=== PATIENT | male | born 1965 | race Caucasian/White ===

== ENCOUNTER 2019-08-21 10:54 | Emergency (ER) | payer SELFPAY ==
[2019-08-21] MEDS ORDERED: ONDANSETRON HCL INJ/PF 4 MG/2 ML SDV IV ONE (11:37)
--- NOTE | 2019-08-21 11:38 | ER Document Report ---
ED Medical Screen (RME) - General Chief Complaint: Abdominal Pain Stated Complaint: ABDOMINAL PAIN Time Seen by Provider: 08/21/19 11:32 Primary Care Provider: LOLA LIEBERMAN MD [Primary Care Provider] - Follow up as needed Mode of Arrival: Wheelchair Information source: Patient Notes: Patient is a 54-year-old male presenting to the emergency department chief complaint of upper abdominal pain that radiates straight through to his back. Patient reports the pain started several hours ago. He states he has had a similar pain approximately 1 to 2 years ago when he was diagnosed with a gallstone. Patient has not had any abdominal surgeries. Exam: Tenderness in the right upper quadrant and epigastric area. Patient appears to be in moderate distress. Patient's vital signs within normal limits. I have greeted and performed a rapid initial assessment of this patient. A comprehensive ED assessment and evaluation of the patient, analysis of test results and completion of the medical decision making process will be conducted by additional ED providers. I have specifically instructed the patient or family members with the patient to immediately return to any nursing staff should anything change in the patient's condition or with their chief complaint. - Related Data Allergies/Adverse Reactions: No Known Allergies Allergy (Unverified 11/25/13 10:37) Home Medications: Amlodipine, Stool Softener Past Medical History - Past Medical History Cardiac Medical History: Reports: Hx Hypertension - Immunizations Hx Diphtheria, Pertussis, Tetanus Vaccination: No Physical Exam - Vital signs Vitals: Temp Pulse Resp BP Pulse Ox 97.6 F 81 20 164/86 H 100 08/21/19 11:25 08/21/19 11:25 08/21/19 11:25 08/21/19 11:25 08/21/19 11:25 Course - Vital Signs Vital signs: Temp Pulse Resp BP Pulse Ox 97.6 F 81 20 164/86 H 100 08/21/19 11:25 08/21/19 11:25 08/21/19 11:25 08/21/19 11:25 08/21/19 11:25 Doctor's Discharge - Discharge Referrals: LOLA LIEBERMAN MD [Primary Care Provider] - Follow up as needed
[2019-08-21] MEDS: MORPHINE SULFATE 10 MG/ML INJ IV ONE ×2 (12:07→12:10)
[2019-08-21 12:11] LABS: ABSOLUTE BASOPHILS # (AUTO) 0.1 10^3/uL (0.0-0.2); ABSOLUTE LYMPHOCYTES (AUTO) 0.9 10^3/uL (0.5-4.7); ABSOLUTE MONOCYTES (AUTO) 0.5 10^3/uL (0.1-1.4); ABSOLUTE NEUT (AUTO) 9.9 10^3/uL (1.7-8.2); EOSINOPHILS % (AUTO) 0.2 % (0-6); HEMOGLOBIN 16.8 g/dL (13.5-17.0); LYMPHOCYTES % (AUTO) 7.8 % (13-45); MEAN CORPUSCULAR HEMOGLOBIN 30.7 pg (27.0-33.4); MEAN CORPUSCULAR VOLUME 88 fl (80-97); MONOCYTES % (AUTO) 4.8 % (3-13); PLATELET COUNT 404 10^3/uL (150-450); RED BLOOD COUNT 5.46 10^6/uL (4.35-5.55); RED CELL DISTRIBUTION WIDTH 13.3 % (11.5-14.0); SEGMENTED NEUTROPHILS % (AUTO) 86.2 % (42-78); TOTAL CELLS COUNTED % (AUTO) 100 %; WHITE BLOOD COUNT 11.4 10^3/uL (4.0-10.5)
[2019-08-21 12:37] LABS: ALBUMIN 4.9 g/dL (3.5-5.0); ALKALINE PHOSPHATASE 104 U/L (38-126); ANION GAP 13 (5-19); ASPARTATE AMINO TRANSFERASE 40 U/L (17-59); BILIRUBIN,DIRECT 0.1 mg/dL (0.0-0.4); BLOOD UREA NITROGEN 14 mg/dL (7-20); CALCIUM 10.1 mg/dL (8.4-10.2); CARBON DIOXIDE 23 mmol/L (22-30); CHLORIDE 102 mmol/L (98-107); GLUCOSE 176 mg/dL (75-110); POTASSIUM 3.8 mmol/L (3.6-5.0); TOTAL PROTEIN 8.2 g/dL (6.3-8.2)
[2019-08-21 13:11] LABS: APPEARANCE,URINE SLIGHTLY-CLOUDY; BILIRUBIN,URINE NEGATIVE (NEGATIVE); CALCIUM OXALATE CRYSTALS,URINE MODERATE /HPF; COLOR,URINE AMBER; GLUCOSE, URINE 50 mg/dL (NEGATIVE); KETONES,URINE 80 mg/dL (NEGATIVE); LEUKOCYTE ESTERASE,URINE NEGATIVE (NEGATIVE); NITRITE,URINE NEGATIVE (NEGATIVE); PROTEIN,URINE 30 mg/dL (NEGATIVE); URINE SPECIFIC GRAVITY 1.025
[2019-08-21] MEDS ORDERED: NORMAL SALINE 1000 ML 1,000 ML IV ONE (13:18)
--- NOTE | 2019-08-21 13:29 | RADIOLOGY REPORT (SQ) ---
EXAM DESCRIPTION: U/S ABDOMEN LIMITED W/O DOP COMPLETED DATE/TIME: 08/21/2019 1:15 pm REASON FOR STUDY: ruq/EPIGASTRIC PAIN COMPARISON: None. TECHNIQUE: Dynamic and static grayscale images acquired of the abdomen and recorded on PACS. Lewiso randy selected color Doppler and spectral images recorded. LIMITATIONS: None. FINDINGS: PANCREAS: Not seen. LIVER: Enlarged. Increased echogenicity. No masses. LIVER VASCULATURE: Normal directional flow of the main portal vein and hepatic veins. GALLBLADDER: Stones and sludge are present in the gallbladder. No cell wall thickening. There is no pericholecystic fluid. ULTRASOUND-DETECTED DE LEON'S SIGN: Negative. INTRAHEPATIC DUCTS AND COMMON DUCT: CBD and intrahepatic ducts normal caliber. No filling defects. INFERIOR VENA CAVA: Normal flow. AORTA: No aneurysm. RIGHT KIDNEY: Normal size, 11.1 cm. Normal echogenicity. No solid or suspicious masses. No hydroneph rosis. No calcifications. PERITONEAL AND RIGHT PLEURAL SPACE: No ascites or effusions. OTHER: No other significant findings. IMPRESSION: Cholelithiasis with sludge in the gallbladder. No evidence of cholecystitis. Hepatic s teatosis. TECHNICAL DOCUMENTATION: JOB ID: [id number] 2010 [employer]- All Rights Reserved Reading location - IP/workstation name: [email or web address]
[2019-08-21] MEDS ORDERED: MORPHINE SULFATE 10 MG/ML INJ IV ONE (13:51)
--- NOTE | 2019-08-21 13:54 | ER Document Report ---
ED General - General Chief Complaint: Abdominal Pain Stated Complaint: ABDOMINAL PAIN Time Seen by Provider: 08/21/19 11:32 Primary Care Provider: [facility] [Provider Group] - Follow up tomorrow (call for an appointment) LOLA LIEBERMAN MD [Primary Care Provider] - Follow up as needed Mode of Arrival: Wheelchair Information source: Patient Notes: 54-year-old male with history of high blood pressure presents to the emergency department today with complaints of upper abdominal pain. He reports pain radiates to his back. He reports for the past 2 days he has felt uncomfortable but this a.m. the pain increased. Complaints of epigastric pain that radiates bilaterally to his back. Denies vomiting fever or diarrhea. Reports he is been told he has had gallstones in the past. Patient reports he has been eating drinking voiding bowel movement as normal. Reports last bowel movement was today. Patient reports he has had some issues with constipation because he is currently not working because he has a fractured leg. He reports he had a hamburger last night. Woke up with the abdominal pain today. - HPI Onset: Other - 3 days Onset/Duration: Persistent Quality of pain: Cramping Associated symptoms: None Exacerbated by: Denies Relieved by: Denies Similar symptoms previously: No Recently seen / treated by doctor: No - Related Data Allergies/Adverse Reactions: No Known Allergies Allergy (Unverified 11/25/13 10:37) Home Medications: Amlodipine, Stool Softener Past Medical History - General Information source: Patient - Social History Smoking Status: Unknown if Ever Smoked Cigarette use (# per day): No Frequency of alcohol use: None Drug Abuse: None Family History: Reviewed & Not Pertinent Patient has suicidal ideation: No Patient has homicidal ideation: No - Past Medical History Cardiac Medical History: Reports: Hx Hypertension Past Surgical History: Reports: Hx Orthopedic Surgery, Hx Tonsillectomy - Immunizations Hx Diphtheria, Pertussis, Tetanus Vaccination: No Review of Systems - Review of Systems Notes: Review HPI for review of systems., All other systems negative Physical Exam - Vital signs Vitals: Temp Pulse Resp BP Pulse Ox 97.6 F 81 20 164/86 H 100 08/21/19 11:25 08/21/19 11:25 08/21/19 11:25 08/21/19 11:25 08/21/19 11:25 - General General appearance: Appears well, Alert In distress: None - HEENT Head: Normocephalic, Atraumatic Eyes: Normal Conjunctiva: Normal Pupils: PERRL Ears: Normal External canal: Normal Tympanic membrane: Normal Mucous membranes: Normal Pharynx: Normal Neck: Normal, Supple. No: Lymphadenopathy - Respiratory Respiratory status: No respiratory distress Chest status: Nontender Breath sounds: Normal Chest palpation: Normal - Cardiovascular Rhythm: Regular Heart sounds: Normal auscultation Murmur: No - Abdominal Inspection: Normal Distension: No distension Bowel sounds: Normal Tenderness: Tender - Epigastric area tender to palpate Organomegaly: No organomegaly Adult front & back diagram: 1 - Complains of some tenderness - Back Back: No: CVA tenderness - Extremities General upper extremity: Normal ROM General lower extremity: Normal ROM Notes: Right lower leg with orthopedic boot - Neurological Neuro grossly intact: Yes Cognition: Normal Orientation: AAOx4 L[place] Coma Scale Eye Opening: Spontaneous Mark Coma Scale Verbal: Oriented [place] Coma Scale Motor: Obeys Commands [place] Coma Scale Total: 15 Speech: Normal Cranial nerves: Normal - Psychological Associated symptoms: Normal affect, Normal mood - Skin Skin Temperature: Warm Skin Moisture: Dry Skin Color: Normal Course - Re-evaluation Re-evalutation: 08/21/19 14:12 Slight elevated white count at 11.4. Lipase is 67.3 urine shows a little bit of dehydration with ketones at 80. Gallbladder ultrasound shows some sludge. Patient reports he received morphine took away all the pain is little bit uncomfortable now but not unbearable. Patient reports he needs to call his niece for a ride home. He will be given a little bit morphine and finish 1 L of IV fluids discharge afterward. He was instructed on all results. Instructed on Bentyl antispasmodic. He was also instructed on the importance of follow-up with the surgeon tomorrow for evaluation scheduled to have his gallbladder taken out. He verbalized understanding to all instructions. Laboratory 08/21/19 08/21/19 08/21/19 12:01 12:01 12:37 WBC 11.4 H RBC 5.46 Hgb 16.8 Hct 48.0 MCV 88 MCH 30.7 MCHC 35.0 RDW 13.3 Plt Count 404 Lymph % (Auto) 7.8 L Duval % (Auto) 4.8 Eos % (Auto) 0.2 Baso % (Auto) 1.0 Absolute Neuts (auto) 9.9 H Absolute Lymphs (auto) 0.9 Absolute Monos (auto) 0.5 Absolute Eos (auto) 0.0 Absolute Basos (auto) 0.1 Seg Neutrophils % 86.2 H Sodium 137.9 Potassium 3.8 Chloride 102 Carbon Dioxide 23 Anion Gap 13 BUN 14 Creatinine 0.82 Est GFR ( Amer) > 60 Est GFR (MDRD) Non-Af > 60 Glucose 176 H Calcium 10.1 Total Bilirubin 1.0 Direct Bilirubin 0.1 Neonat Total Bilirubin Not Reportable Neonat Direct Bilirubin Not Reportable Neonat Indirect Bili Not Reportable AST 40 ALT 48 Alkaline Phosphatase 104 Total Protein 8.2 Albumin 4.9 Lipase 67.3 Urine Color LINDSEY Urine Appearance SLIGHTLY-CLOUDY Urine pH 5.0 Ur Specific Mallory 1.025 Urine Protein 30 H Urine Glucose (UA) 50 H Urine Ketones 80 H Urine Blood NEGATIVE Urine Nitrite NEGATIVE Urine Bilirubin NEGATIVE Urine Urobilinogen 2.0 H Ur Leukocyte Esterase NEGATIVE Urine WBC (Auto) 5 Urine RBC (Auto) 1 U Hyaline Cast (Auto) 8 Urine Bacteria (Auto) TRACE Squamous Epi Cells Auto <1 Calcium Oxalate Cr Auto MODERATE Urine Mucus (Auto) MANY Urine Ascorbic Acid NEGATIVE Abdomen Ultrasound 08/21/19 11:39 IMPRESSION: Cholelithiasis with sludge in the gallbladder. No evidence of cholecystitis. Hepatic steatosis. 08/21/19 14:13 - Vital Signs Vital signs: Temp Pulse Resp BP Pulse Ox 98.2 F 80 17 148/78 H 100 08/21/19 14:32 08/21/19 14:32 08/21/19 14:32 08/21/19 14:32 08/21/19 14:32 - Laboratory Result Diagrams: 08/21/19 12:01 08/21/19 12:01 Laboratory results interpreted by me: 08/21/19 08/21/19 08/21/19 12:01 12:01 12:37 WBC 11.4 H Lymph % (Auto) 7.8 L Absolute Neuts (auto) 9.9 H Seg Neutrophils % 86.2 H Glucose 176 H Urine Protein 30 H Urine Glucose (UA) 50 H Urine Ketones 80 H Urine Urobilinogen 2.0 H - Diagnostic Test Radiology reviewed: Image reviewed, Reports reviewed Discharge - Discharge Clinical Impression: Upper abdominal pain, Gallbladder sludge Condition: Stable Disposition: HOME, SELF-CARE Instructions: Abdominal Pain ([facility]), Antispasmodics ([facility]), Gallbladder Disease ([facility]), Low-Fat Diet ([facility]) Additional Instructions: *You have been evaluated for abdominal pain, gallbladder sludge *Take medication as prescribed *Eat a low-fat diet. Avoid fatty foods *Follow up with a surgeon this week for evaluation *Return to ED for worsening condition, changes, needs, concerns *Return to ED if not better in 24 hours Prescriptions: Dicyclomine HCl [Bentyl 20 mg Tablet] 20 mg PO QID #40 tablet Forms: Elevated Blood Pressure Referrals: LOLA LIEBERMAN MD [Primary Care Provider] - Follow up as needed [facility] [Provider Group] - Follow up tomorrow (call for an appointment)
[2019-08-21 14:33] VITALS: BP 148/78
== END 2019-08-21 14:51 | disposition home or self-care (01) ==
LOC: ER 10:54
DX: K82.0 Obstruction of gallbladder (principal); R10.9 Unspecified abdominal pain; R10.10 Upper abdominal pain, unspecified; M54.9 Dorsalgia, unspecified; R10.13 Epigastric pain; I10 Essential (primary) hypertension
CPT/HCPCS: 96376; 99284; 96361; 96374; 96375; 36415; 83690; 85025; 80053; 81001; 76705; J2270; J2405; J7030

== ENCOUNTER 2019-08-21 19:24 | Observation (INO) | payer SELFPAY ==
[2019-08-21] MEDS ORDERED: NORMAL SALINE 1000 ML 1,000 ML IV ONE ×2 (19:34→22:28)
[2019-08-21] MEDS ORDERED: ONDANSETRON 4 MG TAB.RAPDIS PO ONE (19:34)
[2019-08-21] MEDS ORDERED: KETOROLAC TROMETHAMINE INJ/PF 30 MG/1 ML SDV IM ONE (19:35)
--- NOTE | 2019-08-21 19:38 | ER Document Report ---
ED Medical Screen (RME) - General Chief Complaint: Abdominal Pain >50 Stated Complaint: ABDOMINAL PAIN Time Seen by Provider: 08/21/19 19:33 Primary Care Provider: LOLA LIEBERMAN MD [Primary Care Provider] - Follow up as needed Mode of Arrival: Wheelchair Information source: Patient Notes: 54-year-old male presented to ED for complaint of right upper quadrant abdominal pain. He was seen here earlier today. His ultrasound did show he had sludge in his gallbladder. He was discharged home after getting 2 injections of morphine. He states the morphine worked so good earlier. I have ordered him some Zofran and Toradol now I have repeated the labs. Have also ordered a CT abdomen pelvis. He will be seen by another provier. I have greeted and performed a rapid initial assessment of this patient. A comprehensive ED assessment and evaluation of the patient, analysis of test results and completion of medical decision making process will be conducted by an additional ED providers. - Related Data Allergies/Adverse Reactions: No Known Allergies Allergy (Unverified 11/25/13 10:37) Past Medical History - Past Medical History Cardiac Medical History: Reports: Hx Hypertension Past Surgical History: Reports: Hx Orthopedic Surgery, Hx Tonsillectomy - Immunizations Hx Diphtheria, Pertussis, Tetanus Vaccination: No Physical Exam - Vital signs Vitals: Temp Pulse Resp BP Pulse Ox 98.6 F 111 H 22 H 147/85 H 98 08/21/19 19:29 08/21/19 19:29 08/21/19 19:29 08/21/19 19:29 08/21/19 19:29 Course - Vital Signs Vital signs: Temp Pulse Resp BP Pulse Ox 98.6 F 111 H 22 H 147/85 H 98 08/21/19 19:29 08/21/19 19:29 08/21/19 19:29 08/21/19 19:29 08/21/19 19:29 Doctor's Discharge - Discharge Referrals: LOLA LIEBERMAN MD [Primary Care Provider] - Follow up as needed
[2019-08-21 19:56] LABS: ABSOLUTE BASOPHILS # (AUTO) 0.1 10^3/uL (0.0-0.2); ABSOLUTE LYMPHOCYTES (AUTO) 1.2 10^3/uL (0.5-4.7); BASOPHILS % (AUTO) 0.9 % (0-2); HEMATOCRIT 47.7 % (37.9-51.0); HEMOGLOBIN 16.5 g/dL (13.5-17.0); LYMPHOCYTES % (AUTO) 7.1 % (13-45); MEAN CORPUSCULAR HEMOGLOBIN 30.5 pg (27.0-33.4); MEAN CORPUSCULAR HGB CONC 34.7 g/dL (32.0-36.0); MEAN CORPUSCULAR VOLUME 88 fl (80-97); MONOCYTES % (AUTO) 6.1 % (3-13); PLATELET COUNT 421 10^3/uL (150-450); RED BLOOD COUNT 5.42 10^6/uL (4.35-5.55); RED CELL DISTRIBUTION WIDTH 13.6 % (11.5-14.0); SEGMENTED NEUTROPHILS % (AUTO) 85.9 % (42-78); TOTAL CELLS COUNTED % (AUTO) 100 %; WHITE BLOOD COUNT 16.3 10^3/uL (4.0-10.5)
[2019-08-21 20:18] LABS: ALBUMIN 4.7 g/dL (3.5-5.0); ALKALINE PHOSPHATASE 101 U/L (38-126); ANION GAP 13 (5-19); ASPARTATE AMINO TRANSFERASE 47 U/L (17-59); BILIRUBIN,DIRECT 0.2 mg/dL (0.0-0.4); BILIRUBIN,TOTAL 1.1 mg/dL (0.2-1.3); BLOOD UREA NITROGEN 13 mg/dL (7-20); CALCIUM 9.5 mg/dL (8.4-10.2); CARBON DIOXIDE 21 mmol/L (22-30); CHLORIDE 104 mmol/L (98-107); GLUCOSE 174 mg/dL (75-110); TOTAL PROTEIN 7.9 g/dL (6.3-8.2)
[2019-08-21] MEDS ORDERED: MORPHINE SULFATE 10 MG/ML INJ IV ONE (20:35)
--- NOTE | 2019-08-21 20:38 | ER Document Report ---
Doctor's Note Notes: 08/21/19 20:37 Nursing staff approached me asking if I could order additional pain medications for this patient. He was not triaged by me. I ordered 4 mg of morphine as his white blood count has increased from 11,000-16,000 in the last 6 hours.
--- NOTE | 2019-08-21 21:22 | RADIOLOGY REPORT (SQ) ---
EXAM DESCRIPTION: CT scan of the abdomen and pelvis with contrast. CLINICAL HISTORY: 54 years Male; Abdominal pain TECHNIQUE: CT of the abdomen and pelvis with intravenous contrast. Delayed imaging of the abdomen and pelvis was also performed. All CT scans at this facility use dose modulation, iterative reconstruction, and/or weight based dosing when appropriate to reduce radiation dose to as low as reasonably achievable. This exam was performed according to our department optimization program which includes automated exposure control, adjustment of the mA and/or kv according to patient size and/or use of iterative reconstruction technique. COMPARISON: None. FINDINGS: Lower chest:The lung bases are clear. The visualized portion of heart and great vessels are normal. Abdomen: Liver and biliary tree: Diffuse fatty infiltration of the liver is identified. In the left lower lobe anteriorly is a 10 mm low density area suggestive of a cyst. Gallbladder is distended and contains cholesterol stones as well as a hyperdense area dependently suggestive of sludge. No biliary dilatation. Pancreas: Normal Spleen:Within normal limits Kidneys: Kidneys are normal in size, shape and position. No stones. No mass or hydronephrosis. Simple appearing cyst is noted in the left kidney that measures 2 cm. Symmetric renal enhancement is seen. On delayed imaging there is symmetric excretion from the kidneys. The ureters are seen throughout their course and are unremarkable. Adrenal glands:Within normal limits Vascular structures:Within normal limits Retroperitoneum: No mass or lymphadenopathy Abdominal wall: Small umbilical hernia is seen containing omentum. The fascial defect is 10 mm. GI:Bowel is of normal caliber. No focal bowel wall thickening. No obstruction. Appendix: The appendix appears normal. General: No free air. No free fluid Pelvis: Lymph nodes: Small nonspecific lymph nodes are seen along the external iliac vessels bilaterally. These do not meet size criteria for pathologic process. Bladder: Unremarkable. Pelvis: No pelvic mass or adenopathy. Bones: Mild endplate spondylosis is seen in the lower thoracic spine. IMPRESSION: 1. Cholelithiasis. 2. Mild fatty infiltration of the liver. 3. No acute process in the abdomen or pelvis.
[2019-08-21 21:42] LABS: APPEARANCE,URINE CLEAR; BILIRUBIN,URINE NEGATIVE (NEGATIVE); COLOR,URINE YELLOW; GLUCOSE, URINE 150 mg/dL (NEGATIVE); KETONES,URINE 20 mg/dL (NEGATIVE); PROTEIN,URINE NEGATIVE (NEGATIVE); UROBILINOGEN,URINE NEGATIVE mg/dL (<2.0)
--- NOTE | 2019-08-21 22:15 | ER Document Report ---
ED General - General Chief Complaint: Abdominal Pain >50 Stated Complaint: ABDOMINAL PAIN Time Seen by Provider: 08/21/19 19:33 Primary Care Provider: LOLA LIEBERMAN MD [Primary Care Provider] - Follow up as needed Mode of Arrival: Wheelchair - [facility] Notes: Patient is a 54-year-old male with a history of hypertension who presents complaining of right upper quadrant and epigastric abdominal pain for the past couple days. On occasion he will feel nauseated. He was here earlier this afternoon and was found to have gallbladder sludge and cholelithiasis without evidence of cholecystitis. He had an 11.1 white count at that time. He was given medications and was feeling better and was subsequently discharged. He then came back due to return of the pain. Pain does not radiate. He is urinating normally and having normal bowel movements. Denies drug allergies. Denies any headache, fever, neck pain, URI, sore throat, chest pain, palpitations, syncope, cough, shortness of breath, wheeze, dyspnea, vomiting/diarrhea, urinary retention, dysuria, hematuria, back pain, or rash. - Related Data Allergies/Adverse Reactions: No Known Allergies Allergy (Unverified 11/25/13 10:37) Past Medical History - General Information source: Patient - Social History Smoking Status: Never Smoker Family History: Reviewed & Not Pertinent Patient has suicidal ideation: No Patient has homicidal ideation: No - Past Medical History Cardiac Medical History: Reports: Hx Hypertension Past Surgical History: Reports: Hx Orthopedic Surgery, Hx Tonsillectomy - Immunizations Hx Diphtheria, Pertussis, Tetanus Vaccination: No Review of Systems - Review of Systems -: Yes All other systems reviewed and negative Physical Exam - Vital signs Vitals: Temp Pulse Resp BP Pulse Ox 98.6 F 111 H 22 H 147/85 H 98 08/21/19 19:29 08/21/19 19:29 08/21/19 19:29 08/21/19 19:29 08/21/19 19:29 - Notes Notes: PHYSICAL EXAMINATION: GENERAL: Well-appearing, well-nourished and in no acute distress. HEAD: Atraumatic, normocephalic. EYES: Pupils equal round and reactive to light, extraocular movements intact, sclera anicteric, conjunctiva are normal. ENT: Nares patent and without discharge. oropharynx clear without exudates. No tonsilar hypertrophy or erythema. Moist mucous membranes. NECK: Normal range of motion, supple without lymphadenopathy LUNGS: Breath sounds clear to auscultation bilaterally and equal. No wheezes rales or rhonchi. HEART: Regular rate and rhythm without murmurs, rubs, gallops. ABDOMEN: Soft, nondistended abdomen. No guarding, no rebound. Normal bowel sounds present. No CVA tenderness bilaterally. + tenderness to the RUQ/epigastrum Musculoskeletal: FROM to passive/active. Strength 5+/5. Extremities: No cyanosis, clubbing, or edema b/l. Peripheral pulses 2+. Capillary refill less than 3 seconds. NEUROLOGICAL: Cranial nerves grossly intact. Normal speech, normal gait. PSYCH: Normal mood, normal affect. SKIN: Warm, Dry, normal turgor, no rashes or lesions noted. Course - Re-evaluation Re-evalutation: 08/21/19 22:15 [address] speak with [address] Ochoa, surgeon, who will come evaluate the patient. 08/21/19 22:25 Patient is an afebrile, well-hydrated, 54-year-old male who presents with cholelithiasis and leukocytosis of 16,000. His white blood cell count did increase since his visit this afternoon. Vitals are currently acceptable. PE is otherwise unremarkable. Patient is nontoxic-appearing. Labs are otherwise acceptable. The surgeon has accepted patient for admission for cholecystectomy in the morning. Patient in agreement with this plan. - Vital Signs Vital signs: Temp Pulse Resp BP Pulse Ox 98.6 F 111 H 22 H 147/85 H 98 08/21/19 19:29 08/21/19 19:29 08/21/19 19:29 08/21/19 19:29 08/21/19 19:29 - Laboratory Result Diagrams: 08/21/19 19:44 08/21/19 19:44 Laboratory results interpreted by me: 08/21/19 08/21/19 08/21/19 19:44 19:44 21:07 WBC 16.3 H Lymph % (Auto) 7.1 L Absolute Neuts (auto) 14.0 H Seg Neutrophils % 85.9 H Carbon Dioxide 21 L Glucose 174 H Urine Glucose (UA) 150 H Urine Ketones 20 H Urine Blood SMALL H Discharge - Discharge Clinical Impression: RUQ pain Cholelithiasis Qualifiers: Cholelithiasis location: gallbladder Cholecystitis presence: without cholecystitis Biliary obstruction: without biliary obstruction Qualified Code(s): K80.20 - Calculus of gallbladder without cholecystitis without obstruction Condition: Stable Disposition: ADMITTED INPATIENT Admitting Provider: Surgicalist - Dr. Ochoa Unit Admitted: Surgical Floor Referrals: LOLA LIEBERMAN MD [Primary Care Provider] - Follow up as needed
[2019-08-21] MEDS ORDERED: HYDROMORPHONE HCL INJ/PF 2 MG/ML AMPULE IV ONE (22:28)
[2019-08-21] MEDS ORDERED: DEXTROSE 5%-LACTATED RINGERS 1,000 ML IV PRN (22:43)
--- NOTE | 2019-08-21 22:43 | PDOC H&P ---
History of Present Illness Admission Date/PCP: LOLA LIEBERMAN MD Patient complains of: Right upper quadrant pains with nausea History of Present Illness: CANDE WINN is a 54 year old male hypertensive having off and on mild right upper quadrant pains past few days. Last night he ate cheeseburger and woke up this morning at 6 AM with excruciating abdominal pains with nausea. He went to ED this morning and ultrasound showed gallstones with sludge but no evidence of cholecystitis with a white count around 11,000. He was sent home after being given pain medications but the pains got worse this afternoon and went back to ED. CT scan done in ED showed cholelithiasis no evidence of cholecystitis but his white count went up to 16,000. Denies any fever no chills Past Medical History Cardiac Medical History: Reports: Hypertension Past Surgical History Past Surgical History: Reports: Orthopedic Surgery, Tonsillectomy Social History Smoking Status: Never Smoker Family History Family History: Reviewed & Not Pertinent Parental Family History Reviewed: Yes - Mother has diabetes Children Family History Reviewed: No Sibling(s) Family History Reviewed.: No Medication/Allergy Home Medications: Cephalexin Monohydrate [Keflex 500 mg Capsule] 500 mg PO BID #20 capsule 11/25 Dicyclomine HCl [Bentyl 20 mg Tablet] 20 mg PO QID #40 tablet 08/21/19 Allergies/Adverse Reactions: No Known Allergies Allergy (Unverified 11/25/13 10:37) Review of Systems Constitutional: PRESENT: as per HPI Gastrointestinal: PRESENT: abdominal pain, nausea Physical Exam Vital Signs: Temp Pulse Resp BP Pulse Ox 98.6 F 111 H 22 H 147/85 H 98 08/21/19 19:29 08/21/19 19:29 08/21/19 19:29 08/21/19 19:29 08/21/19 19:29 Intake & Output 08/20/19 08/21/19 08/22/19 06:59 06:59 06:59 Intake Total 1000 Balance 1000 Weight 121.1 kg General appearance: PRESENT: severe distress Eye exam: PRESENT: conjunctiva pink Mouth exam: PRESENT: moist Neck exam: PRESENT: full ROM Cardiovascular exam: PRESENT: tachycardia Pulses: PRESENT: normal radial pulses Vascular exam: PRESENT: normal capillary refill GI/Abdominal exam: PRESENT: soft, tenderness - Right upper quadrant and epigastric areas Neurological exam: PRESENT: alert, oriented to person, oriented to place, neha ented to time, oriented to situation Psychiatric exam: PRESENT: appropriate affect Skin exam: PRESENT: normal color, warm Results Laboratory Results: 08/21/19 19:44 08/21/19 19:44 08/21/19 08/21/19 08/21/19 19:44 19:44 21:07 WBC 16.3 H RBC 5.42 Hgb 16.5 Hct 47.7 MCV 88 MCH 30.5 MCHC 34.7 RDW 13.6 Plt Count 421 Seg Neutrophils % 85.9 H Sodium 138.3 Potassium 4.0 Chloride 104 Carbon Dioxide 21 L Anion Gap 13 BUN 13 Creatinine 0.65 Est GFR ( Amer) > 60 Glucose 174 H Calcium 9.5 Total Bilirubin 1.1 AST 47 Alkaline Phosphatase 101 Total Protein 7.9 Albumin 4.7 Lipase 55.7 Urine Color YELLOW Urine Appearance CLEAR Urine pH 5.0 Ur Specific [place] 1.030 Urine Protein NEGATIVE Urine Glucose (UA) 150 H Urine Ketones 20 H Urine Blood SMALL H Urine RBC (Auto) 3 Impressions: Abdomen/Pelvis CT 08/21/19 19:35 IMPRESSION: 1. Cholelithiasis. 2. Mild fatty infiltration of the liver. 3. No acute process in the abdomen or pelvis. Assessment & Plan - Diagnosis (1) Acute cholecystitis Is this a current diagnosis for this admission?: Yes (2) Hypertension Is this a current diagnosis for this admission?: Yes (3) Cholelithiasis Qualifiers: Cholelithiasis location: gallbladder Cholecystitis presence: without cholecystitis Biliary obstruction: without biliary obstruction Qualified Code(s): K80.20 - Calculus of gallbladder without cholecystitis without obstruction Is this a current diagnosis for this admission?: Yes - Time Time Spent: 30 to 50 Minutes - Inpatient Certification Medical Necessity: Need For IV Fluids, Need for Pain Control, Need for IV Antibiotics, Need for Surgery - Plan Summary Plan Summary: 54-year-old male with mild abdominal pains past few days but after eating a cheeseburger last night woke up this morning at 6:30 AM with excruciating pain associated with nausea. Went to ED where an ultrasound showed gallstones with sludge but no evidence of cholecystitis. His white count was around 11,000. He was sent home on pain medications but p.o. pain meds did not help increasing abdominal pains this afternoon and went back to ED. CT scan of the abdomen was done which showed gallstones but no evidence of cholecystitis. However his white count is elevated to about 16,000 with a blood sugar 175. The denies any fever or chills. His abdomen is tender in the epigastric and right upper quadrant areas otherwise it soft. Impression is acute cholecystitis, cholelithiasis Hypertension Plans: Hydrate IV antibiotics For laparoscopic cholecystectomy tomorrow with Dr. Iverson
[2019-08-21] MEDS ORDERED: HYDROMORPHONE HCL INJ/PF 2 MG/ML AMPULE IV PRN (22:47)
[2019-08-21] MEDS ORDERED: ONDANSETRON HCL INJ/PF 4 MG/2 ML SDV IV PRN (22:51)
[2019-08-21] MEDS ORDERED: KETOROLAC TROMETHAMINE INJ/PF 30 MG/1 ML SDV IV SCH (23:00)
[2019-08-22] MEDS ORDERED: PIPERACILLIN/TAZOBACTAM 3.375 GM VIAL IV PRN
[2019-08-22] MEDS: HYDROMORPHONE HCL INJ/PF 2 MG/ML AMPULE IV PRN ×2 (01:23→05:48)
[2019-08-22] MEDS: PIPERACILLIN SODIUM/TAZOBACTAM 3.375 GM in NORMAL SALINE 100 ML IV SCH ×4 (01:29→17:36)
[2019-08-22] MEDS: KETOROLAC TROMETHAMINE INJ/PF 30 MG/1 ML SDV IV PRN ×2 (03:20→09:20)
[2019-08-22 05:34] LABS: HEMATOCRIT 43.9 % (37.9-51.0); HEMOGLOBIN 15.3 g/dL (13.5-17.0); MEAN CORPUSCULAR HEMOGLOBIN 30.8 pg (27.0-33.4); MEAN CORPUSCULAR HGB CONC 34.8 g/dL (32.0-36.0); MEAN CORPUSCULAR VOLUME 88 fl (80-97); PLATELET COUNT 319 10^3/uL (150-450); RED BLOOD COUNT 4.97 10^6/uL (4.35-5.55); RED CELL DISTRIBUTION WIDTH 13.7 % (11.5-14.0); WHITE BLOOD COUNT 11.8 10^3/uL (4.0-10.5)
[2019-08-22] MEDS ORDERED: PIPERACILLIN/TAZOBACTAM 3.375 GM VIAL IV ONE (05:40)
[2019-08-22] MEDS ORDERED: METOPROLOL TARTRATE PF/INJ 5 MG/5 ML SDV IV ONE (05:45)
[2019-08-22 06:10] LABS: ABSOLUTE LYMPHOCYTES# (MANUAL) 0.7 10^3/uL (0.5-4.7); ABSOLUTE MONOCYTES # (MANUAL) 0.6 10^3/uL (0.1-1.4); BAND NEUTROPHILS % (MANUAL) 1 % (3-5); BASOPHILS % (MANUAL) 0 % (0-2); EOSINOPHILS % (MANUAL) 0 % (0-6); LYMPHOCYTES % (MANUAL) 6 % (13-45); MONOCYTES % (MANUAL) 5 % (3-13); SEGMENTED NEUTROPHILS % (MAN) 88 % (42-78); TOTAL CELLS COUNTED 100
[2019-08-22 06:11] LABS: PLATELET COMMENT ADEQUATE
--- NOTE | 2019-08-22 06:35 | PDOC CONSULTATION ---
Consultation Consult Date: 08/22/19 Attending physician:: NADYA ANTHONY Provider Consulted: DUSTY ESPAÑA Consult reason:: Hypertension History of Present Illness Admission Date/PCP: 08/21/19 22:44 LOLA LIEBERMAN MD Patient complains of: Episodes of biliary colic History of Present Illness: CANDE WINN is a 54 year old male who was admitted for acute biliary colic and laparoscopic surgical treatment was planned by Dr. Nadya Anthony today. Patient was noted to have elevated blood pressure on several readings over the evening and Dr. Anthony consulted the hospitalist service for management. Patient admits his first episode of biliary colic was about a year and a half ago and he had another episode on the day of admission when he woke up with severe colicky right upper quadrant abdominal pain radiating to the right midclavicular region accompanied by nausea, after eating a cheeseburger in the previous evening. The pain episodes last for several hours each time that they occur with gradual dissipation. Pain seems to be associated with eating greasy or fatty foods. He denies other associated or accompanying signs and symptoms. He has not identified any additional aggravating or ameliorating factors for his abdominal pain. Past Medical History Cardiac Medical History: Reports: Hypertension Denies: Atrial Fibrillation, Coronary Artery Disease, DVT, Hyperlipidema, Pulmonary Embolism Pulmonary Medical History: Denies: Asthma, Chronic Obstructive Pulmonary Disease (COPD) EENT Medical History: Denies: Cataracts, Ears - Hearing aids Neurological Medical History: Denies: Hemorrhagic CVA, Ischemic CVA, Seizures Endocrine Medical History: Reports: Obesity Denies: Diabetes Mellitus Type 1, Diabetes Mellitus Type 2, Hyperthyroidism, Hypothyroidism Renal/ Medical History: Denies: Chronic Kidney Disease, Nephrolithiasis Malignancy Medical History: Reports: None GI Medical History: Reports: Other - "Gallstones" Denies: Cirrhosis, Crohn's Disease, Gastroesophageal Reflux Disease, Hepatitis, Peptic Ulcer Disease, Ulcerative Colitis Musculoskeltal Medical History: Reports: Other - Vitamin D deficiency Denies: Arthritis, Gout Skin Medical History: Denies: Eczema, Psoriasis Psychiatric Medical History: Denies: Alcohol Dependency, Substance Abuse, Tobacco Dependency Traumatic Medical History: Reports: None Hematology: Denies: Anemia, Bleeding Tendencies Infectious Medical History: Reports: None Past Surgical History Past Surgical History: Reports: Orthopedic Surgery - Right lower extremity, Tonsillectomy Social History Information Source: Patient Lives with: Alone Smoking Status: Never Smoker Electronic Cigarette use?: No Frequency of Alcohol Use: None Hx Recreational Drug Use: No Drugs: None Hx Prescription Drug Abuse: No - Advance Directive Resuscitation Status: Full Code Surrogate healthcare decision maker:: Amy Mauricio Family History Family History: DM, Hypertension, Malignancy. denies: CAD Parental Family History Reviewed: Yes Children Family History Reviewed: No Sibling(s) Family History Reviewed.: Yes Medication/Allergy Home Medications: Cephalexin Monohydrate [Keflex 500 mg Capsule] 500 mg PO BID #20 capsule 11/25/13 Dicyclomine HCl [Bentyl 20 mg Tablet] 20 mg PO QID #40 tablet 08/21/19 Allergies/Adverse Reactions: No Known Allergies Allergy (Unverified 11/25/13 10:37) Review of Systems Constitutional: ABSENT: chills, fever(s) Eyes: ABSENT: visual disturbances, other - Eye pain Ears: ABSENT: hearing changes, other - Ear pain Nose, Mouth, and Throat: ABSENT: headache(s), sore throat Cardiovascular: ABSENT: chest pain, palpitations Respiratory: ABSENT: cough, dyspnea Gastrointestinal: PRESENT: as per HPI, abdominal pain, nausea. ABSENT: constipation, diarrhea, vomiting Genitourinary: ABSENT: dysuria, hematuria Musculoskeletal: ABSENT: back pain, joint swelling, muscle weakness Integumentary: ABSENT: pruritus, rash Neurological: ABSENT: confusion, convulsions, focal weakness, memory loss, syncope Psychiatric: ABSENT: anxiety, depression Endocrine: ABSENT: cold intolerance, heat intolerance, polydipsia, polyphagia, polyuria Hematologic/Lymphatic: ABSENT: easy bleeding, easy bruising Allergic/Immunologic: ABSENT: seasonal rhinorrhea Physical Exam Vital Signs: Temp Pulse Resp BP Pulse Ox 97.8 F 87 18 172/85 H 96 08/22/19 04:29 08/22/19 04:29 08/22/19 04:29 08/22/19 04:29 08/22/19 04:29 Intake & Output 08/20/19 08/21/19 08/22/19 23:59 23:59 23:59 Intake Total 1999 100 Output Total 625 Balance 1999 - Weight 121.1 kg 120.8 kg General appearance: PRESENT: no acute distress, cooperative Head exam: PRESENT: atraumatic, normocephalic Eye exam: PRESENT: conjunctiva pink. ABSENT: scleral icterus Ear exam: PRESENT: normal external ear exam. ABSENT: bleeding, drainage Mouth exam: PRESENT: dry mucosa, neck supple Neck exam: ABSENT: thyromegaly, tracheal deviation Respiratory exam: PRESENT: clear to auscultation amberly, symmetrical, unlabored Cardiovascular exam: PRESENT: RRR. ABSENT: clicks, gallop, rubs Pulses: PRESENT: normal radial pulses, normal dorsalis pedis pul Vascular exam: PRESENT: normal capillary refill. ABSENT: pallor GI/Abdominal exam: PRESENT: Hernandez's sign, normal bowel sounds, soft, tenderness - Moderate right upper quadrant tenderness on palpation Rectal exam: PRESENT: deferred Extremities exam: ABSENT: joint swelling, pedal edema Musculoskeletal exam: PRESENT: other - Wearing a postoperative boot on the right lower extremity. ABSENT: deformity, dislocation Neurological exam: PRESENT: alert, oriented to person, oriented to place, oriented to time, oriented to situation, CN II-XII grossly intact. ABSENT: motor sensory deficit Psychiatric exam: PRESENT: appropriate affect, normal mood Skin exam: PRESENT: dry, intact, warm. ABSENT: jaundice, rash, urticaria Results Laboratory Results: 08/22/19 04:14 08/21/19 19:44 08/21/19 08/21/19 08/21/19 19:44 19:44 21:07 WBC 16.3 H RBC 5.42 Hgb 16.5 Hct 47.7 MCV 88 MCH 30.5 MCHC 34.7 RDW 13.6 Plt Count 421 Seg Neutrophils % 85.9 H Sodium 138.3 Potassium 4.0 Chloride 104 Carbon Dioxide 21 L Anion Gap 13 BUN 13 Creatinine 0.65 Est GFR ( Amer) > 60 Glucose 174 H Calcium 9.5 Total Bilirubin 1.1 AST 47 Alkaline Phosphatase 101 Total Protein 7.9 Albumin 4.7 Lipase 55.7 Urine Color YELLOW Urine Appearance CLEAR Urine pH 5.0 Ur Specific [place] 1.030 Urine Protein NEGATIVE Urine Glucose (UA) 150 H Urine Ketones 20 H Urine Blood SMALL H Urine RBC (Auto) 3 08/22/19 04:14 WBC 11.8 H RBC 4.97 Hgb 15.3 Hct 43.9 MCV 88 MCH 30.8 MCHC 34.8 RDW 13.7 Plt Count 319 Seg Neutrophils % Not Reportable Sodium Potassium Chloride Carbon Dioxide Anion Gap BUN Creatinine Est GFR ( Amer) Glucose Calcium Total Bilirubin AST Alkaline Phosphatase Total Protein Albumin Lipase Urine Color Urine Appearance Urine pH Ur Specific [place] Urine Protein Urine Glucose (UA) Urine Ketones Urine Blood Urine RBC (Auto) Impressions: Abdomen/Pelvis CT 08/21/19 19:35 IMPRESSION: 1. Cholelithiasis. 2. Mild fatty infiltration of the liver. 3. No acute process in the abdomen or pelvis. Assessment and Plan - Diagnosis (1) Hypertension Qualifiers: Hypertension type: essential hypertension Qualified Code(s): I10 - Essential (primary) hypertension Is this a current diagnosis for this admission?: Yes (2) RUQ pain Is this a current diagnosis for this admission?: Yes (3) Cholelithiasis Qualifiers: Cholelithiasis location: gallbladder Cholecystitis presence: without cholecystitis Biliary obstruction: without biliary obstruction Qualified Code(s): K80.20 - Calculus of gallbladder without cholecystitis without obstruction Is this a current diagnosis for this admission?: Yes (4) Acute cholecystitis Is this a current diagnosis for this admission?: Yes - Plan Summary Summary: Patient will be treated initially with metoprolol 5 mg IV every 4 hours as needed to maintain a systolic blood pressure less than 160 and a diastolic blood pressure less than 100. Once patient is able to take oral antihypertensives again he should be placed back on his usual Norvasc at his normal dosage. As long as his blood pressure is stabilized there should be no reason that he cannot have surgery this morning. - Time Time Spent with patient: 25-34 minutes Medications reviewed and adjusted accordingly: Yes Anticipated discharge: Home - Inpatient Certification Based on my medical assessment, after consideration of the patient's comorbidities, presenting symptoms, or acuity I expect that the services needed warrant INPATIENT care.: Yes I certify that my determination is in accordance with my understanding of Medicare's requirements for reasonable and necessary INPATIENT services [42 CFR 412.3e].: Yes Medical Necessity: Need For IV Fluids, Need for Pain Control, Need for Surgery
[2019-08-22] MEDS ORDERED: METOPROLOL TARTRATE PF/INJ 5 MG/5 ML SDV IV PRN (06:49)
--- NOTE | 2019-08-22 07:52 | PDOC PROGRESS REPORT ---
Subjective Progress Note for:: 08/22/19 Subjective:: 54-year-old male admitted with right upper quadrant pain and gallstones. He complains of right upper quadrant pain today. He denies fevers, chills, nausea, vomiting, melena, hematochezia, hematemesis, dizziness, orthostasis. Reason For Visit: ACUTE CHOLECYSTITIS,CHOLELITHIASIS Physical Exam Vital Signs: Temp Pulse Resp BP Pulse Ox 97.8 F 87 18 172/85 H 96 08/22/19 04:29 08/22/19 04:29 08/22/19 04:29 08/22/19 04:29 08/22/19 04:29 Intake & Output 08/21/19 08/22/19 08/23/19 06:59 06:59 06:59 Intake Total 2100 Output Total 625 Balance 1475 Weight 120.8 kg General appearance: PRESENT: no acute distress, cooperative Head exam: PRESENT: atraumatic, normocephalic Eye exam: PRESENT: EOMI, PERRLA. ABSENT: scleral icterus Mouth exam: PRESENT: moist, neck supple Neck exam: ABSENT: meningismus, tenderness, thyromegaly, tracheal deviation Respiratory exam: PRESENT: unlabored. ABSENT: chest wall tenderness, wheezes Cardiovascular exam: ABSENT: tachycardia Pulses: PRESENT: normal radial pulses GI/Abdominal exam: PRESENT: soft. ABSENT: distended, tenderness Rectal exam: PRESENT: deferred Extremities exam: ABSENT: clubbing Neurological exam: PRESENT: alert, awake Psychiatric exam: ABSENT: agitated, anxious Focused psych exam: ABSENT: delusional Skin exam: ABSENT: cyanosis, erythema, jaundice Results Laboratory Results: 08/22/19 04:14 08/21/19 19:44 08/21/19 08/21/19 08/21/19 19:44 19:44 21:07 WBC 16.3 H RBC 5.42 Hgb 16.5 Hct 47.7 MCV 88 MCH 30.5 MCHC 34.7 RDW 13.6 Plt Count 421 Seg Neutrophils % 85.9 H Sodium 138.3 Potassium 4.0 Chloride 104 Carbon Dioxide 21 L Anion Gap 13 BUN 13 Creatinine 0.65 Est GFR ( Amer) > 60 Glucose 174 H Calcium 9.5 Total Bilirubin 1.1 AST 47 Alkaline Phosphatase 101 Total Protein 7.9 Albumin 4.7 Lipase 55.7 Urine Color YELLOW Urine Appearance CLEAR Urine pH 5.0 Ur Specific [place] 1.030 Urine Protein NEGATIVE Urine Glucose (UA) 150 H Urine Ketones 20 H Urine Blood SMALL H Urine RBC (Auto) 3 08/22/19 04:14 WBC 11.8 H RBC 4.97 Hgb 15.3 Hct 43.9 MCV 88 MCH 30.8 MCHC 34.8 RDW 13.7 Plt Count 319 Seg Neutrophils % Not Reportable Sodium Potassium Chloride Carbon Dioxide Anion Gap BUN Creatinine Est GFR ( Amer) Glucose Calcium Total Bilirubin AST Alkaline Phosphatase Total Protein Albumin Lipase Urine Color Urine Appearance Urine pH Ur Specific [place] Urine Protein Urine Glucose (UA) Urine Ketones Urine Blood Urine RBC (Auto) Impressions: Abdomen/Pelvis CT 08/21/19 19:35 IMPRESSION: 1. Cholelithiasis. 2. Mild fatty infiltration of the liver. 3. No acute process in the abdomen or pelvis. Assessment & Plan - Diagnosis (1) Acute cholecystitis Is this a current diagnosis for this admission?: Yes - Plan Summary Plan Summary: This is a 54-year-old male with acute cholecystitis. He still complains of right upper quadrant pain. Continue with IV antibiotics. Plan for surgical intervention today. Risks/benefits discussed, informed consent obtained, and all questions answered.
[2019-08-22] MEDS ORDERED: SUCCINYLCHOLINE CHLORIDE INJ 200 MG/10 ML VIAL ONE (09:35)
[2019-08-22] MEDS ORDERED: PHENYLEPHRINE HCL INJ/PF 10 MG/1 ML SDV ONE (09:35)
[2019-08-22] MEDS ORDERED: GLYCOPYRROLATE 1 MG/5 ML VIAL ONE (09:35)
[2019-08-22] MEDS ORDERED: DEXAMETHASONE SOD PHOSPHATE INJ 4 MG/1 ML VIAL ONE (09:35)
[2019-08-22] MEDS ORDERED: LIDOCAINE 2% INJ-PF (20 MG/ML) 2 ML AMPUL ONE (09:35)
[2019-08-22] MEDS ORDERED: NEOSTIGMINE METHYLSULFATE 10 MG/10 ML VIAL ONE (09:35)
[2019-08-22] MEDS ORDERED: ONDANSETRON HCL INJ/PF 4 MG/2 ML SDV ONE (09:35)
[2019-08-22] MEDS ORDERED: ROCURONIUM BROMIDE INJ 50 MG/5 ML VIAL IV ONE (09:35)
[2019-08-22] MEDS ORDERED: BUPIVACAINE HCL 0.25 % INJ/PF (2.5 MG/1 ML) 30 ML VIAL ONE (10:08)
[2019-08-22] MEDS ORDERED: FENTANYL CITRATE INJ/PF 100 MCG/2 ML AMPUL ONE ×2 (10:30→13:54)
[2019-08-22] MEDS ORDERED: PROPOFOL INJ 200 MG/20 ML VIAL IV ONE (10:31)
[2019-08-22] MEDS ORDERED: MIDAZOLAM 2 MG/2 ML INJ ONE (10:31)
--- NOTE | 2019-08-22 10:52 | PDOC PROGRESS REPORT ---
Subjective Progress Note for:: 08/22/19 Subjective:: Patient is resting comfortably. Currently being transferred down to the OR for his surgery. Blood pressures have not been ideally controlled as he is just on intravenous medications at this time. Reason For Visit: ACUTE CHOLECYSTITIS,CHOLELITHIASIS Physical Exam Vital Signs: Temp Pulse Resp BP Pulse Ox 98.1 F 89 20 163/84 H 95 08/22/19 07:43 08/22/19 07:43 08/22/19 07:43 08/22/19 07:43 08/22/19 07:43 Intake & Output 08/21/19 08/22/19 08/23/19 06:59 06:59 06:59 Intake Total 2100 100 Output Total 625 Balance 1475 100 Weight 120.8 kg General appearance: PRESENT: no acute distress, cooperative, well-developed Head exam: PRESENT: atraumatic, normocephalic Eye exam: PRESENT: conjunctiva pink. ABSENT: scleral icterus Ear exam: PRESENT: normal external ear exam. ABSENT: bleeding, drainage Mouth exam: PRESENT: moist, tongue midline Neck exam: PRESENT: full ROM. ABSENT: carotid bruit, JVD, lymphadenopathy Respiratory exam: PRESENT: clear to auscultation amberly, symmetrical, unlabored. ABSENT: prolonged expiratory phas, rales, rhonchi, tachypnea, wheezes Cardiovascular exam: PRESENT: RRR, +S1, +S2. ABSENT: diastolic murmur, systolic murmur GI/Abdominal exam: PRESENT: diminished bowel sounds, distended, soft, tenderness. ABSENT: guarding Rectal exam: PRESENT: deferred Extremities exam: PRESENT: pedal edema - Trace Musculoskeletal exam: PRESENT: normal inspection Neurological exam: PRESENT: alert, awake, oriented to person, oriented to place, oriented to time, oriented to situation, CN II-XII grossly intact. ABSENT: motor sensory deficit Psychiatric exam: PRESENT: flat affect. ABSENT: agitated, anxious Focused psych exam: ABSENT: delusional, restlessness Skin exam: PRESENT: dry, normal color, warm Results Laboratory Results: 08/22/19 04:14 08/21/19 19:44 08/21/19 08/21/19 08/21/19 19:44 19:44 21:07 WBC 16.3 H RBC 5.42 Hgb 16.5 Hct 47.7 MCV 88 MCH 30.5 MCHC 34.7 RDW 13.6 Plt Count 421 Seg Neutrophils % 85.9 H Sodium 138.3 Potassium 4.0 Chloride 104 Carbon Dioxide 21 L Anion Gap 13 BUN 13 Creatinine 0.65 Est GFR ( Amer) > 60 Glucose 174 H Calcium 9.5 Total Bilirubin 1.1 AST 47 Alkaline Phosphatase 101 Total Protein 7.9 Albumin 4.7 Lipase 55.7 Urine Color YELLOW Urine Appearance CLEAR Urine pH 5.0 Ur Specific [place] 1.030 Urine Protein NEGATIVE Urine Glucose (UA) 150 H Urine Ketones 20 H Urine Blood SMALL H Urine RBC (Auto) 3 08/22/19 04:14 WBC 11.8 H RBC 4.97 Hgb 15.3 Hct 43.9 MCV 88 MCH 30.8 MCHC 34.8 RDW 13.7 Plt Count 319 Seg Neutrophils % Not Reportable Sodium Potassium Chloride Carbon Dioxide Anion Gap BUN Creatinine Est GFR ( Amer) Glucose Calcium Total Bilirubin AST Alkaline Phosphatase Total Protein Albumin Lipase Urine Color Urine Appearance Urine pH Ur Specific [place] Urine Protein Urine Glucose (UA) Urine Ketones Urine Blood Urine RBC (Auto) Impressions: Abdomen/Pelvis CT 08/21/19 19:35 IMPRESSION: 1. Cholelithiasis. 2. Mild fatty infiltration of the liver. 3. No acute process in the abdomen or pelvis. Assessment and Plan - Diagnosis (1) Acute cholecystitis Is this a current diagnosis for this admission?: Yes Plan: The patient is scheduled for surgery today. He is currently n.p.o. (2) Hypertension Qualifiers: Hypertension type: essential hypertension Qualified Code(s): I10 - Essential (primary) hypertension Is this a current diagnosis for this admission?: Yes Plan: Currently with IV medications available. His blood pressure is up but this could be due to pain. Will resume amlodipine tomorrow. - Plan Summary Summary: Patient will be treated initially with metoprolol 5 mg IV every 4 hours as needed to maintain a systolic blood pressure less than 160 and a diastolic blood pressure less than 100. Once patient is able to take oral antihypertensives again he should be placed back on his usual Norvasc at his normal dosage. As long as his blood pressure is stabilized there should be no reason that he cannot have surgery this morning. - Time Time Spent with patient: 15-24 minutes Medications reviewed and adjusted accordingly: Yes Anticipated discharge: Home Within: within 48 hours
[2019-08-22] MEDS ORDERED: HYDRALAZINE HCL INJ/PF 20 MG/1 ML SDV IV PRN (10:53)
[2019-08-22] MEDS ORDERED: HYDROMORPHONE HCL INJ/PF 2 MG/ML AMPULE IV PRN (11:22)
[2019-08-22] MEDS ORDERED: MORPHINE SULFATE 10 MG/ML INJ IV PRN (12:43)
[2019-08-22] MEDS ORDERED: DIPHENHYDRAMINE HCL 50 MG/ML VIAL IV PRN (12:43)
[2019-08-22] MEDS ORDERED: PROMETHAZINE HCL INJ 25 MG/1 ML VIAL IV PRN ×2 (12:43)
[2019-08-22] MEDS ORDERED: FENTANYL CITRATE INJ/PF 100 MCG/2 ML AMPUL IV PRN ×3 (12:43)
[2019-08-22] MEDS ORDERED: MEPERIDINE HCL/PF INJ 25 MG/1 ML DISP.SYRIN IV PRN (12:43)
--- NOTE | 2019-08-22 13:25 | Operative Report ---
Nonrecallable Operative Report DATE OF SURGERY: 08/22/19 PREOPERATIVE DIAGNOSIS: Acute cholecystitis POSTOPERATIVE DIAGNOSIS: Acute, gangrenous cholecystitis OPERATION: Laparoscopic cholecystectomy SURGEON: LOUISA LANDA ANESTHESIA: GA TISSUE REMOVED OR ALTERED: Gallbladder COMPLICATIONS: None apparent ESTIMATED BLOOD LOSS: 50 cc PROCEDURE: Drains/implants: 15 [place] round Ameya drain. Procedure in detail: After informed consent was obtained, the patient was brought to the operating room and laid in the supine position. The area of the abdomen was prepped and draped in a normal sterile fashion. A supraumbilical incision was created with 15 blade scalpel. Dissection was carried through the subcutaneous tissues using sharp and blunt dissection. The linea alba fascia was incised sharply, the abdomen was entered sharply. The balloon trocar was inserted, and pneumoperitoneum was achieved. A subxiphoid 5 mm port was then placed under direct laparoscopic visualization. 2 more 5 mm ports were placed in the right upper quadrant in similar fashion. Atraumatic graspers were placed through the 5 mm ports. The gallbladder was identified. It was acutely gangrenous. The gallbladder was tense and distended. It was aspirated with a cyst aspiration needle. Approximately 120 cc of dark, thick bile was aspirated from the gallbladder. Next, the gallbladder was retracted cephalad and laterally. The infundibulum was densely inflamed. Secondary to this, a dome down technique was employed, in order to safely free the gallbladder from the liver. Once the gallbladder was freed, the infundibulum was reached. A PDS Endoloop was secured around the infundibulum of the gallbladder, immediately distal to the cystic duct. This was done in order to keep the hilum safe from any potential injury. The gallbladder was then amputated and placed into an Endo Catch bag. The gallbladder was pulled out th rough the umbilicus. The camera was reinserted. The abdomen was copiously irrigated and suctioned until the effluent was clear. The hilum was inspected. It was found to be free of any leakage of blood or bile. A 15 [place] round Ameya drain was placed through the lateralmost trocar site. The drain was situated in the gallbladder fossa. The drain was sutured to the skin using 2-0 nylon suture. After this was completed, the 5 mm trochars were removed under direct laparoscopic visualization. The supraumbilical trocar was removed, and pneumoperitoneum was relieved. The supraumbilical fascia was closed using 0 Vicryl suture in [id number] fashion. The overlying skin was closed using 4-0 Vicryl Rapide suture in subcuticular fashion. All sponge, instrument, and needle counts were correct x2. Condition: Stable.
[2019-08-22] MEDS ORDERED: HYDROCODONE/ACETAMINOPHEN 10-325 MG TABLET PO PRN (13:26)
[2019-08-22] MEDS: IBUPROFEN 800 MG TABLET PO SCH (17:36)
[2019-08-22] MEDS: FAMOTIDINE 20 MG TABLET PO SCH (21:09)
[2019-08-23] MEDS: PIPERACILLIN SODIUM/TAZOBACTAM 3.375 GM in NORMAL SALINE 100 ML IV SCH ×3 (00:01→12:14)
[2019-08-23] MEDS: FAMOTIDINE 20 MG TABLET PO SCH (09:05)
[2019-08-23] MEDS: IBUPROFEN 800 MG TABLET PO SCH ×3 (09:06→18:00)
[2019-08-23] MEDS ORDERED: DOCUSATE SODIUM 100 MG CAPSULE PO SCH (10:00)
[2019-08-23] MEDS ORDERED: AMLODIPINE BESYLATE 10 MG TABLET PO SCH (10:00)
--- NOTE | 2019-08-23 13:05 | PDOC DISCHARGE SUMMARY ---
General - Admit/Disc Date/PCP Admission Date/Primary Care Provider: 08/21/19 22:44 LOLA LIEBERMAN MD Discharge Date: 08/23/19 - Discharge Diagnosis Final Diagnosis: Acute gangrenous cholecystitis, cholelithiasis Hypertension - Assessment Summary: Patient will be treated initially with metoprolol 5 mg IV every 4 hours as needed to maintain a systolic blood pressure less than 160 and a diastolic blood pressure less than 100. Once patient is able to take oral antihypertensives again he should be placed back on his usual Norvasc at his normal dosage. As long as his blood pressure is stabilized there should be no reason that he cannot have surgery this morning. - Additional Information Resuscitation Status: Full Code Discharge Diet: Regular Discharge Activity: Activity As Tolerated - No lifting more than 10 to 15 pounds for the next 1 to 2 weeks, No Lifting Over 10 Pounds - for 1-2 weeks Referrals: LOLA LIEBERMAN MD [Primary Care Provider] - Follow up as needed LOUISA IVERSON MD [ACTIVE STAFF] - 08/28/19 2:15 pm (F/U IN 1 WEEK FOR DRAIN REMOVAL) Home Medications: Amlodipine Besylate [Norvasc 10 mg Tablet] 10 mg PO DAILY 08/22/19 Aspirin [Ecotrin 81 mg EC Tablet] 81 mg PO DAILY 08/22/19 Cholecalciferol (Vitamin D3) [Vitamin D3 1000 Unit Tablet] 1,000 unit PO DAILY 08/22/19 Docusate Sodium [Colace 100 mg Capsule] 100 mg PO DAILY 08/22/19 Cholecalciferol (Vitamin D3) [Vitamin D3 1000 Unit Tablet] 1,000 unit PO DAILY tablet 08/23/19 Ibuprofen [Motrin 800 mg Tablet] 800 mg PO MEALS tablet 08/23/19 History of Present Illiness History of Present Illness: CANDE WINN is a 54 year old male hypertensive having off and on mild right upper quadrant pains past few days. Last night he ate cheeseburger and woke up this morning at 6 AM with excruciating abdominal pains with nausea. He went to ED this morning and ultrasound showed gallstones with sludge but no evidence of cholecystitis with a white count around 11,000. He was sent home after being given pain medications but the pains got worse this afternoon and went back to ED. CT scan done in ED showed cholelithiasis no evidence of cholecystitis but his white count went up to 16,000. Denies any fever no chills Hospital Course Hospital Course: Patient underwent laparoscopic cholecystectomy by Dr. Iverson on 08/22/2019. There is a suggestion of a gangrenous gallbladder. A drain was placed and this will be removed in the office. He will be sent home with a drain. Physical Exam Vital Signs: Temp Pulse Resp BP Pulse Ox 98.4 F 99 16 164/91 H 99 08/23/19 09:00 08/23/19 09:00 08/23/19 09:00 08/23/19 09:00 08/23/19 09:00 Intake & Output 08/22/19 08/23/19 08/24/19 06:59 06:59 06:59 Intake Total 2100 5400 Output Total 625 4375 35 Balance 1475 1025 -35 Weight 120.8 kg 122.9 kg Exam: Market tenderness in the right upper quadrant and epigastric area with seen in the ED. Postoperatively the abdomen is soft with minimal tenderness all the incisions are clean and dry. There is a little blood stain on the JACQUE dressing that will be changed. Results Laboratory Results: WBC 11.8 10^3/uL (4.0-10.5) H 08/22/19 04:14 RBC 4.97 10^6/uL (4.35-5.55) 08/22/19 04:14 Hgb 15.3 g/dL (13.5-17.0) 08/22/19 04:14 Hct 43.9 % (37.9-51.0) 08/22/19 04:14 MCV 88 fl (80-97) 08/22/19 04:14 MCH 30.8 pg (27.0-33.4) 08/22/19 04:14 MCHC 34.8 g/dL (32.0-36.0) 08/22/19 04:14 RDW 13.7 % (11.5-14.0) 08/22/19 04:14 Plt Count 319 10^3/uL (150-450) 08/22/19 04:14 Lymph % (Auto) Not Reportable 08/22/19 04:14 Esmeralda % (Auto) Not Reportable 08/22/19 04:14 Eos % (Auto) Not Reportable 08/22/19 04:14 Baso % (Auto) Not Reportable 08/22/19 04:14 Absolute Neuts (auto) Not Reportable 08/22/19 04:14 Absolute Lymphs (auto) Not Reportable 08/22/19 04:14 Absolute Monos (auto) Not Reportable 08/22/19 04:14 Absolute Eos (auto) Not Reportable 08/22/19 04:14 Absolute Basos (auto) Not Reportable 08/22/19 04:14 Total Counted 100 08/22/19 04:14 Seg Neutrophils % Not Reportable 08/22/19 04:14 Seg Neuts % (Manual) 88 % (42-78) H 08/22/19 04:14 Band Neutrophils % 1 % (3-5) L 08/22/19 04:14 Lymphocytes % (Manual) 6 % (13-45) L 08/22/19 04:14 Monocytes % (Manual) 5 % (3-13) 08/22/19 04:14 Eosinophils % (Manual) 0 % (0-6) 08/22/19 04:14 Basophils % (Manual) 0 % (0-2) 08/22/19 04:14 Abs Neuts (Manual) 10.5 10^3/uL (1.7-8.2) H 08/22/19 04:14 Abs Lymphs (Manual) 0.7 10^3/uL (0.5-4.7) 08/22/19 04:14 Abs Monocytes (Manual) 0.6 10^3/uL (0.1-1.4) 08/22/19 04:14 Absolute Eos (Manual) 0.0 10^3/uL (0.0-0.6) 08/22/19 04:14 Abs Basophils (Manual) 0.0 10^3/uL (0.0-0.2) 08/22/19 04:14 Platelet Comment ADEQUATE 08/22/19 04:14 Sodium 138.3 mmol/L (137-145) 08/21/19 19:44 Potassium 4.0 mmol/L (3.6-5.0) 08/21/19 19:44 Chloride 104 mmol/L (98-107) 08/21/19 19:44 Carbon Dioxide 21 mmol/L (22-30) L 08/21/19 19:44 Anion Gap 13 (5-19) 08/21/19 19:44 BUN 13 mg/dL (7-20) 08/21/19 19:44 Creatinine 0.65 mg/dL (0.52-1.25) 08/21/19 19:44 Est GFR ( Amer) > 60 (>60) 08/21/19 19:44 Est GFR (MDRD) Non-Af > 60 (>60) 08/21/19 19:44 Glucose 174 mg/dL (75-110) H 08/21/19 19:44 POC Glucose 155 mg/dL (70-110) H 08/22/19 16:26 Calcium 9.5 mg/dL (8.4-10.2) 08/21/19 19:44 Total Bilirubin 1.1 mg/dL (0.2-1.3) 08/21/19 19:44 Direct Bilirubin 0.2 mg/dL (0.0-0.4) 08/21/19 19:44 Neonat Total Bilirubin Not Reportable 08/21/19 19:44 Neonat Direct Bilirubin Not Reportable 08/21/19 19:44 Neonat Indirect Bili Not Reportable 08/21/19 19:44 AST 47 U/L (17-59) 08/21/19 19:44 ALT 47 U/L (<50) 08/21/19 19:44 Alkaline Phosphatase 101 U/L (38-126) 08/21/19 19:44 Total Protein 7.9 g/dL (6.3-8.2) 08/21/19 19:44 Albumin 4.7 g/dL (3.5-5.0) 08/21/19 19:44 Lipase 55.7 U/L (23-300) 08/21/19 19:44 Urine Color YELLOW 08/21/19 21:07 Urine Appearance CLEAR 08/21/19 21:07 Urine pH 5.0 (5.0-9.0) 08/21/19 21:07 Ur Specific [place] 1.030 08/21/19 21:07 Urine Protein NEGATIVE mg/dL (NEGATIVE) 08/21/19 21:07 Urine Glucose (UA) 150 mg/dL (NEGATIVE) H 08/21/19 21:07 Urine Ketones 20 mg/dL (NEGATIVE) H 08/21/19 21:07 Urine Blood SMALL (NEGATIVE) H 08/21/19 21:07 Urine Nitrite (Reflex) NEGATIVE (NEGATIVE) 08/21/19 21:07 Urine Bilirubin NEGATIVE (NEGATIVE) 08/21/19 21:07 Urine Urobilinogen NEGATIVE mg/dL (<2.0) 08/21/19 21:07 Leukocyte Esterase Rfl NEGATIVE (NEGATIVE) 08/21/19 21:07 Urine RBC (Auto) 3 /HPF 08/21/19 21:07 U Hyaline Cast (Auto) 1 /LPF 08/21/19 21:07 Urine WBC (Reflex) 1 /HPF 08/21/19 21:07 Squamous Epi Cells Auto <1 /HPF 08/21/19 21:07 Urine Mucus (Auto) FEW /LPF 08/21/19 21:07 Urine Ascorbic Acid NEGATIVE (NEGATIVE) 08/21/19 21:07 Impressions: Abdomen/Pelvis CT 08/21/19 19:35 IMPRESSION: 1. Cholelithiasis. 2. Mild fatty infiltration of the liver. 3. No acute process in the abdomen or pelvis. Plan Health Concerns: Make sure drain is in place and possibly remove in the office in about a week. Plan of Treatment: Patient to be discharged home with with a drain in place to be removed in the clinic in about a week. Patient tolerating soft diet and to continue with his diet at home until seen in the clinic in about a week He can take Tylenol or ibuprofen as needed for pain Any fever greater than 100 patient to call the surgical clinic or come back to the ED. Goals: 2 remove the drain in about a week patient to continue with regular diet. Time Spent: Less than 30 Minutes
--- NOTE | 2019-08-23 13:32 | PDOC PROGRESS REPORT ---
Subjective Progress Note for:: 08/23/19 Subjective:: The patient is still having abdominal pain and his blood pressure still elevated. Surgery has discharged him to home. Reason For Visit: ACUTE CHOLECYSTITIS,CHOLELITHIASIS Physical Exam Vital Signs: Temp Pulse Resp BP Pulse Ox 98.4 F 99 16 164/91 H 99 08/23/19 09:00 08/23/19 09:00 08/23/19 09:00 08/23/19 09:00 08/23/19 09:00 Intake & Output 08/22/19 08/23/19 08/24/19 06:59 06:59 06:59 Intake Total 2100 5400 Output Total 625 4375 35 Balance 1475 1025 -35 Weight 120.8 kg 122.9 kg General appearance: PRESENT: cooperative, well-developed Head exam: PRESENT: atraumatic, normocephalic Ear exam: PRESENT: normal external ear exam. ABSENT: bleeding, drainage Respiratory exam: PRESENT: clear to auscultation amberly, symmetrical, unlabored. ABSENT: rales, rhonchi, tachypnea, wheezes Cardiovascular exam: PRESENT: RRR, +S1, +S2 GI/Abdominal exam: PRESENT: diminished bowel sounds, soft, tenderness Neurological exam: PRESENT: alert, awake, oriented to person, oriented to place, oriented to time, oriented to situation, CN II-XII grossly intact Psychiatric exam: PRESENT: appropriate affect - Affect reflects his discomfort. ABSENT: agitated, anxious Results Laboratory Results: 08/22/19 04:14 08/21/19 19:44 Impressions: Abdomen/Pelvis CT 08/21/19 19:35 IMPRESSION: 1. Cholelithiasis. 2. Mild fatty infiltration of the liver. 3. No acute process in the abdomen or pelvis. Assessment and Plan - Diagnosis (1) Acute cholecystitis Is this a current diagnosis for this admission?: Yes Plan: The patient is scheduled for surgery today. He is currently n.p.o. 08/23/2019 Successful laparoscopic cholecystectomy yesterday. He still having discomfort. Abdominal binder is being applied. He will follow-up with surgery. (2) Hypertension Qualifiers: Hypertension type: essential hypertension Qualified Code(s): I10 - Essential (primary) hypertension Is this a current diagnosis for this admission?: Yes Plan: Currently with IV medications available. His blood pressure is up but this could be due to pain. Will resume amlodipine tomorrow. 08/23/2019-the patient was established with Dr. Dong as his primary care provider. I told him to resume his amlodipine however I strongly suggested he follow-up with Dr. Dong. I believe he will need adjustments in his antihypertensive medication regimen. I explained that he will likely require more medicine. He will continue his amlodipine 10 mg daily for the time being. - Plan Summary Summary: Patient will be treated initially with metoprolol 5 mg IV every 4 hours as needed to maintain a systolic blood pressure less than 160 and a diastolic blood pressure less than 100. Once patient is able to take oral antihypertensives again he should be placed back on his usual Norvasc at his normal dosage. As long as his blood pressure is stabilized there should be no reason that he cannot have surgery this morning. - Time Time Spent with patient: Less than 15 minutes Medications reviewed and adjusted accordingly: Yes Anticipated discharge: Home
[2019-08-23 15:10] VITALS: BP 164/91
[2019-08-24] MEDS ORDERED: ASPIRIN 81 MG TABLET, ENT COATED PO SCH (10:00)
[2019-08-24] MEDS ORDERED: CHOLECALCIFEROL (D3) 1,000 UNIT (25 MCG) TABLET PO SCH (10:00)
== END 2019-08-23 17:16 | disposition home health service (06) ==
LOC: ER 19:24 → EH 22:44 → INTOOBSV 22:44 → 4W 08-22 02:52
PROVIDERS: ATTEND Surgery
DX: K80.12 Calculus of gallbladder with acute and chronic cholecystitis without obstruction (principal); I10 Essential (primary) hypertension; R00.0 Tachycardia, unspecified; Z82.49 Family history of ischemic heart disease and other diseases of the circulatory system
CPT/HCPCS: 47562; 99285; 96372; 96361; 96374; 96375; 36415 ×2; 82962; 83690; 85025; 87070; 81001; 88304 ×2; 74177; G0378 ×4; J2250; J3490 ×4; J1100; S0119; J3010; J0360; J1885 ×2; J2270; J2710; J1170 ×2; J2370; J0330; J2405; J7121; J7050 ×2; J7030; J2704; J2543 ×2; 790